=== PATIENT | female | born 1970 | race Caucasian/White ===

== ENCOUNTER 2023-11-06 07:24 | Day surgery (SDC) | payer OTHER ==
[~2023-11-06] VITALS: Ht 165.1 cm; Wt 81.6 kg
[2023-11-06] MEDS ORDERED: MEPERIDINE 100 MG INJ. 100 MG/ML VIAL ONE (07:40)
[2023-11-06] MEDS ORDERED: MIDAZOLAM HCL 5 MG/5 ML VIAL ONE (07:41)
[2023-11-06 09:06] VITALS: O2SAT 99
[2023-11-06 16:21] VITALS: BP_SYST 139; PULSE 70; RESP 13
== END 2023-11-06 10:37 | disposition home or self-care (01) ==
LOC: SDS 07:24 → SMU 07:25 → SDS 10:37
PROVIDERS: ATTEND Internal Medicine
DX: K59.09 Other constipation (principal); K64.8 Other hemorrhoids; K21.9 Gastro-esophageal reflux disease without esophagitis; E11.9 Type 2 diabetes mellitus without complications; E78.5 Hyperlipidemia, unspecified; Z88.0 Allergy status to penicillin; Z79.82 Long term (current) use of aspirin; Z79.899 Other long term (current) drug therapy; Z90.710 Acquired absence of both cervix and uterus
CPT/HCPCS: 45378; G0378; J2250; J2175